=== PATIENT | male | born 1970 | race Caucasian/White ===

== ENCOUNTER 2022-01-06 16:44 | Inpatient (IN) | payer OTHER ==
[~2022-01-06] VITALS: Ht 170.2 cm; Wt 80.5 kg
[2022-01-06] MEDS ORDERED: IOHEXOL 300 MG/ML 100ML BOTTLE IJ ONE (19:27)
[2022-01-06] MEDS ORDERED: fentaNYL CITRATE 100 MCG/2 ML VL IV ONE ×2 (19:30→22:15)
[2022-01-06] MEDS ORDERED: ONDANSETRON HCL 4 MG/2 ML VIAL IV ONE (19:30)
[2022-01-06] MEDS ORDERED: KETOROLAC TROMETH 30 MG/ML 1ML VIAL IV ONE (19:30)
[2022-01-06 19:45] LABS: Basophils # (auto) 0.1 10 ^3/uL (0-0.2); Basophils % (auto) 0.4 % (0.0-2.0); Eosinophils # (auto) 0 10 ^3/uL (0-0.8); Eosinophils % (auto) 0.3 % (0.0-7.0); Hematocrit 42.9 % (41.0-53.0); Hemoglobin 14.9 g/dL (13.5-17.5); Lymphocytes # (auto) 1.2 10 ^3/uL (0.4-5.4); Lymphocytes % (auto) 8.4 % (10.0-50.0); Mean Corpuscular Hemoglobin 30.9 pg (28.0-32.0); Mean Corpuscular Hgb Conc. 34.6 g/dL (32.0-36.0); Mean Corpuscular Volume 89.3 fL (80.0-100.0); Monocytes # (auto) 0.8 10 ^3/uL (0-1.3); Monocytes % (auto) 5.7 % (0.0-12.0); Neutrophils # (auto) 11.8 10 ^3/uL (1.6-8.6); Neutrophils % (auto) 85.2 % (37.0-80.0); Red Blood Cells 4.81 10^6/uL (4.5-5.90); Red Cell Distribution Width 13.5 % (11.8-14.3); White Blood Cell 13.8 10^3/uL (4.4-10.8)
[2022-01-06 19:53] LABS: Alanine Aminotransferase 35 U/L (16-61); Albumin 4.1 g/dL (3.4-5.0); Anion Gap 5 (5-15); Blood Alcohol < 3.0 mg/dL (0-5); Blood Urea Nitrogen 17 mg/dL (7-18); Carbon Dioxide 28 mmol/L (21-32); Chloride 107 mmol/L (98-107); Glucose 110 mg/dL (74-106); Sodium 140 mmol/L (136-145)
[2022-01-06 19:56] LABS: Alkaline Phosphatase 44 U/L (45-117); Aspartate Aminotransferase 40 U/L (15-37); BUN/Creatinine Ratio 12.2; Bilirubin, Total 0.4 mg/dL (0.2-1.0); GFR African American 70 mL/min; GFR Non-African American 58 mL/min; Total Protein 7.5 g/dL (6.4-8.2)
[2022-01-06] MEDS ORDERED: ACETAMINOPHEN 325 MG TAB PO PRN (21:15)
[2022-01-06] MEDS ORDERED: ONDANSETRON HCL 4 MG/2 ML VIAL IV PRN (21:15)
[2022-01-06] MEDS ORDERED: NITROGLYCERIN 0.4 MG SL TAB SL PRN (21:45)
[2022-01-06] MEDS ORDERED: MORPHINE SULFATE INJECTION 2 MG/ML SYRG IV PRN (21:45)
[2022-01-06] MEDS: KETOROLAC TROMETH 30 MG/ML 1ML VIAL IV ONE (22:15)
[2022-01-07] MEDS: MORPHINE SULFATE INJECTION 2 MG/ML SYRG IV PRN ×5 (01:40→20:04)
[2022-01-07] MEDS: HYDROcodone-ACET 5/325MG TAB PO PRN ×3 (03:51→21:24)
[2022-01-07 05:20] VITALS: BP 121/73
[2022-01-07 05:53] VITALS: BP 121/73
[2022-01-07] MEDS ORDERED: ALPR1TAB2 PO ×2 (07:25→07:27)
[2022-01-07] MEDS ORDERED: LAM100T PO (07:25)
[2022-01-07] MEDS ORDERED: ESCI-28 PO (07:25)
[2022-01-07] MEDS ORDERED: BUSP15TA60 PO (07:25)
[2022-01-07 08:01] LABS: Basophils # (auto) 0 10 ^3/uL (0-0.2); Basophils % (auto) 0.5 % (0.0-2.0); Eosinophils # (auto) 0.1 10 ^3/uL (0-0.8); Eosinophils % (auto) 1.4 % (0.0-7.0); Hematocrit 42.7 % (41.0-53.0); Hemoglobin 14.9 g/dL (13.5-17.5); Lymphocytes # (auto) 1.8 10 ^3/uL (0.4-5.4); Lymphocytes % (auto) 21.5 % (10.0-50.0); Mean Corpuscular Hgb Conc. 34.9 g/dL (32.0-36.0); Mean Corpuscular Volume 88.7 fL (80.0-100.0); Monocytes # (auto) 0.7 10 ^3/uL (0-1.3); Monocytes % (auto) 8.5 % (0.0-12.0); Neutrophils # (auto) 5.9 10 ^3/uL (1.6-8.6); Neutrophils % (auto) 68.1 % (37.0-80.0); Nucleated Red Blood Cells % 0.1 %; Red Blood Cells 4.81 10^6/uL (4.5-5.90); Red Cell Distribution Width 13.6 % (11.8-14.3); White Blood Cell 8.6 10^3/uL (4.4-10.8)
[2022-01-07 08:22] LABS: Albumin 3.8 g/dL (3.4-5.0); Calcium 8.8 mg/dL (8.5-10.1); Potassium 3.9 mmol/L (3.5-5.1)
[2022-01-07 08:24] LABS: BUN/Creatinine Ratio 12.2; Total Protein 7.1 g/dL (6.4-8.2)
[2022-01-07 08:30] VITALS: BP 124/70
[2022-01-07] MEDS: ENOXAPARIN SOD 40 MG/0.4 ML SYRINGE SC SCH (10:00)
[2022-01-07 12:30] VITALS: BP_SYST 110; BP_SYST 117; BP_DIAS 42; BP_DIAS 84
[2022-01-07 17:00] VITALS: BP 120/80
[2022-01-07] MEDS: NICOTINE 21MG/24 HR TOPICAL PATCH TD SCH (21:21)
[2022-01-07] MEDS: busPIRone HCL 10 MG TAB PO SCH (21:23)
[2022-01-07] MEDS: lamoTRIgine 100 MG TAB PO SCH (21:23)
[2022-01-07 22:00] VITALS: BP 111/67
[2022-01-08] MEDS: MORPHINE SULFATE INJECTION 2 MG/ML SYRG IV PRN ×4 (01:50→21:19)
[2022-01-08 04:40] VITALS: BP_SYST 121; BP_SYST 148; BP_DIAS 68; BP_DIAS 72
[2022-01-08 08:30] VITALS: BP 120/80
[2022-01-08] MEDS ORDERED: NICOTINE 21MG/24 HR TOPICAL PATCH TD SCH (10:00)
[2022-01-08] MEDS: HYDROcodone-ACET 5/325MG TAB PO PRN ×2 (10:40→18:32)
[2022-01-08] MEDS: ENOXAPARIN SOD 40 MG/0.4 ML SYRINGE SC SCH (10:48)
[2022-01-08] MEDS: busPIRone HCL 10 MG TAB PO SCH ×2 (10:48→21:23)
[2022-01-08] MEDS: guaiFENesin 200 MG/10 ML UD PO PRN (12:29)
[2022-01-08] MEDS: NICOTINE 21MG/24 HR TOPICAL PATCH TD SCH (12:29)
[2022-01-08 12:30] VITALS: BP 131/94
[2022-01-08] MEDS: DOCUSATE SOD 100 MG CAP PO PRN (12:37)
[2022-01-08 16:30] VITALS: BP 114/81
[2022-01-08] MEDS: lamoTRIgine 100 MG TAB PO SCH (21:23)
[2022-01-08 22:00] VITALS: BP 108/77
[2022-01-09] MEDS: MORPHINE SULFATE INJECTION 2 MG/ML SYRG IV PRN ×3 (02:56→18:32)
[2022-01-09 05:00] VITALS: BP 110/71
[2022-01-09] MEDS: DOCUSATE SOD 100 MG CAP PO PRN (07:47)
[2022-01-09] MEDS: HYDROcodone-ACET 5/325MG TAB PO PRN ×3 (07:48→22:31)
[2022-01-09 08:30] VITALS: BP 118/75
[2022-01-09 09:00] VITALS: BP 118/75
[2022-01-09] MEDS: busPIRone HCL 10 MG TAB PO SCH ×2 (09:09→22:30)
[2022-01-09] MEDS: ENOXAPARIN SOD 40 MG/0.4 ML SYRINGE SC SCH (09:09)
[2022-01-09] MEDS: NICOTINE 21MG/24 HR TOPICAL PATCH TD SCH (09:11)
[2022-01-09 13:00] VITALS: BP 125/69
[2022-01-09] MEDS: guaiFENesin 200 MG/10 ML UD PO PRN (15:22)
[2022-01-09 17:00] VITALS: BP 117/82
[2022-01-09 22:00] VITALS: BP 95/61
[2022-01-09] MEDS: lamoTRIgine 100 MG TAB PO SCH (22:30)
[2022-01-10] MEDS: MORPHINE SULFATE INJECTION 2 MG/ML SYRG IV PRN (03:57)
[2022-01-10 05:00] VITALS: BP 109/62
[2022-01-10 08:00] VITALS: BP 107/70
[2022-01-10] MEDS: ENOXAPARIN SOD 40 MG/0.4 ML SYRINGE SC SCH (09:22)
[2022-01-10] MEDS: busPIRone HCL 10 MG TAB PO SCH (09:22)
[2022-01-10] MEDS: NICOTINE 21MG/24 HR TOPICAL PATCH TD SCH (09:22)
[2022-01-10] MEDS: HYDROcodone-ACET 5/325MG TAB PO PRN (09:23)
[2022-01-10] MEDS ORDERED: HYDR-4798 PO (10:47)
[2022-01-10 11:19] VITALS: BP 107/70
== END 2022-01-10 13:00 | disposition home or self-care (01) | DRG 564 ==
LOC: ER 16:44 → OVERFLOW 21:44 → EAST 01-07 04:31
PROVIDERS: ADMIT Nurse Practitioner Family; ATTEND Family Medicine
DX: S42.115A Nondisplaced fracture of body of scapula, left shoulder, initial encounter for closed fracture (principal); J96.01 Acute respiratory failure with hypoxia; S22.32XA Fracture of one rib, left side, initial encounter for closed fracture; T79.7XXA Traumatic subcutaneous emphysema, initial encounter; S27.0XXA Traumatic pneumothorax, initial encounter; J98.11 Atelectasis; F17.210 Nicotine dependence, cigarettes, uncomplicated; F31.9 Bipolar disorder, unspecified; J43.9 Emphysema, unspecified; S40.212A Abrasion of left shoulder, initial encounter; Z20.822 Contact with and (suspected) exposure to COVID-19; V28.4XXA Motorcycle driver injured in noncollision transport accident in traffic accident, initial encounter; Z82.49 Family history of ischemic heart disease and other diseases of the circulatory system; Z71.6 Tobacco abuse counseling; Y93.89 Activity, other specified; Y99.8 Other external cause status; Y92.410 Unspecified street and highway as the place of occurrence of the external cause
CPT/HCPCS: 36415; 70450; 71045; 71101; 71260; 73030; 74177; 80053; 80320; 85025; 86850; 86900; 86901; 96374; 96375; G0378; J1885; J2405